=== PATIENT | female | born 1970 | race Caucasian/White ===

== ENCOUNTER 2019-07-23 18:52 | Emergency (ER) | payer OTHER ==
[2019-07-23 19:20] VITALS: BP 131/67
--- NOTE | 2019-07-23 20:19 | ED ---
GI/ HPI - HPI Summary HPI Summary: 49 yr old with the complaint of dysuria, frequency of urination, hesitancy of urination, and symptoms of two days duration. she denies fever, chills, nausea vomiting. She has moderate symptoms. No other complaints. - History of Current Complaint Chief Complaint: [facility] Time Seen by Provider: 07/23/19 19:43 Stated Complaint: URINARY COMPLAINT Pain Intensity: 2 - Allergy/Home Medications Allergies/Adverse Reactions: Allergies Allergy/AdvReac Type Severity Reaction Status Date / Time No Known Allergies Allergy Verified 07/23/19 19:12 Home Medications: Home Medications Acetaminophen [Tylenol Extra Strength] 1,000 mg PO Q6H PRN 07/23/19 [History Confirmed 07/23/19] Fluticasone NASAL SPRAY 50MCG* [Flonase NASAL SPRAY 50MCG*] 2 spray BOTH NARES DAILY 07/23/19 [History Confirmed 07/23/19] Ibuprofen TAB* [Advil TAB*] 400 mg PO Q6H PRN 07/23/19 [History Confirmed ] Loratadine [Claritin 10 MG CAP] 10 mg PO DAILY 07/23/19 [History Confirmed 07/23] PMH/Surg Hx/FS Hx/Imm Hx - Surgical History Surgery Procedure, Year, and Place: Hysterectomy. LEEP Infectious Disease History: No Infectious Disease History: Denies: Traveled Outside the [place] in Last 30 Days - Family History Known Family History: Positive: None - Social History Occupation: Employed Full-time Alcohol Use: Occasionally Substance Use Type: Reports: None Smoking Status (MU): Current Every Day Smoker Type: Cigarettes Amount Used/How Often: 1/2 ppd Length of Time of Smoking/Using Tobacco: 34 yrs Have You Smoked in the Last Year: Yes Review of Systems Constitutional: Negative Positive: dysuria, frequency, urgency All Other Systems Reviewed And Are Negative: Yes Physical Exam Triage Information Reviewed: Yes Vital Signs On Initial Exam: Initial Vitals Temp Pulse Resp BP Pulse Ox 97.6 F 77 16 131/67 98 07/23/19 19:14 07/23/19 19:14 07/23/19 19:14 07/23/19 19:14 07/23/19 19:14 Vital Signs Reviewed: Yes Appearance: Positive: Well-Appearing, No Pain Distress Skin: Positive: Warm, Skin Color Reflects Adequate Perfusion Head/Face: Positive: Normal Head/Face Inspection ENT: Positive: Normal ENT inspection Respiratory/Lung Sounds: Positive: Clear to Auscultation, Breath Sounds Present Cardiovascular: Positive: RRR. Negative: Murmur Abdomen Description: Negative: CVA Tenderness (R), CVA Tenderness (L) Musculoskeletal: Positive: Strength/ROM Intact Neurological: Positive: Sensory/Motor Intact, Alert, Oriented to Person Place, Time, CN Intact II-III, Speech Normal Diagnostics - Vital Signs Vital Signs Temp Pulse Resp BP Pulse Ox 07/23/19 19:14 97.6 F 77 16 131/67 98 - Laboratory Lab Results: Lab Results 07/23/19 07/23/19 Range/Units 19:42 19:48 POC Urine Color Other POC Urine Clarity Cloudy POC Urine pH 7.0 (5-9) POC Ur Specif [place] 1.020 (1.010-1.030) POC Urine Protein 2+ A (Negative) POC Ur Glucose (UA) Negative (Negative) POC Urine Ketones Trace A (Negative) POC Urine Blood 2+ A (Negative) POC Urine Nitrite Negative (Negative) POC Urine Bilirubin Negative (Negative) POC Urine Urobilinogen 1.0 (Negative) POC U Leukocyte Esteras 3+ A (Negative) POC Ur Test Negative (Negative) Lab Statement: Any lab studies that have been ordered have been reviewed, and results considered in the medical decision making process. GIGU Course/Dx - Course Course Of Treatment: 49 yr old with UTI. DC home on keflex. - Diagnoses Provider Diagnoses: UTI (urinary tract infection) Discharge ED - Sign-Out/Discharge Documenting (check all that apply): Patient Departure All imaging exams completed and their final reports reviewed: No Studies - Discharge Plan Condition: Good Disposition: HOME Prescriptions: Cephalexin CAP* [Keflex CAP*] 500 mg PO TID #30 cap Patient Education Materials: Urinary Tract Infection in Women (DC) Referrals: [facility] [place] [facility] REFERRAL [Outside] - 2 Days No Primary Care Phys,NOPCP [Primary Care Provider] - - Billing Disposition and Condition Condition: GOOD Disposition: Home
== END 2019-07-23 20:22 | disposition home or self-care (01) ==
LOC: UCCORT 18:52
DX: N39.0 Urinary tract infection, site not specified (principal); F17.210 Nicotine dependence, cigarettes, uncomplicated
CPT/HCPCS: 81003; 84702; 87086; 99202; G0463